=== PATIENT | male | born 1990 | race Two or more races ===

== ENCOUNTER 2024-12-14 18:47 | Emergency (ER) | payer MEDICAID, SELFPAY ==
[2024-12-14 18:48] VITALS: BMI 54.5
[2024-12-14 20:30] VITALS: BP 155/102; BP 164/113; PULSE 109; RESP 18; TEMP 36.9; O2SAT 98
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
[2024-12-14] MEDS: HYDROcodone/APAP 7.5/325 TABLET 1 TAB PO (21:23)
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
== END 2024-12-15 00:20 | disposition home or self-care (01) ==
PROVIDERS: Emergency Provider Emergency Medicine
DX: S13.4XXA Sprain of ligaments of cervical spine, initial encounter (principal); S39.92XA Unspecified injury of lower back, initial encounter; R51.9 Headache, unspecified; V43.52XA Car driver injured in collision with other type car in traffic accident, initial encounter
CPT/HCPCS: 70450; 72125; 72128; 72131; 99283; A9270